=== PATIENT | male | born 1970 | race Caucasian/White ===

== ENCOUNTER 2023-09-02 19:48 | Emergency (ER) | payer BC ==
[2023-09-02] MEDS ORDERED: Sulfameth/Trimethoprim DS 800-160mg TAB ONE (20:07)
== END 2023-09-02 20:25 | disposition home or self-care (01) ==
LOC: BURERS 19:48
DX: S80.862A Insect bite (nonvenomous), left lower leg, initial encounter (principal); S20.362A Insect bite (nonvenomous) of left front wall of thorax, initial encounter; S40.862A Insect bite (nonvenomous) of left upper arm, initial encounter; L08.9 Local infection of the skin and subcutaneous tissue, unspecified; Z87.891 Personal history of nicotine dependence; W57.XXXA Bitten or stung by nonvenomous insect and other nonvenomous arthropods, initial encounter
CPT/HCPCS: 99282